=== PATIENT | male | born 1955 | race Caucasian/White ===

== ENCOUNTER 2019-11-08 12:16 | Outpatient (CLI) | payer OTHER, SELFPAY ==
--- NOTE | ~2019-11-08 | XR_ITS ---
EXAMINATION: XR knee LT min 4V DATE: 11/08/2019 12:52 INDICATION: Diffuse left knee pain post fall 3 weeks prior TECHNIQUE: Weight bearing anteroposterior and [place], sunrise, and flexed lateral views of the lef t knee were obtained COMPARISON: None. FINDINGS: Alignment is normal. No fracture. Subtle chondrocalcinosis at the medial and lateral compartments. T here is mild joint space narrowing in the lateral compartment extending position and in the medial co mpartment with the knee in flexion. Severe joint space narrowing at the lateral aspect of the patello femoral compartment. Moderate size marginal osteophytes at the patellofemoral compartment and tiny ma rginal osteophytes along the intercondylar eminence. There are couple loose osteochondral bodies lexus g the cephalad margin of the patella with no significant surrounding left knee joint effusion. There are at least 4 loose osteochondral bodies likely within an ovoid density likely representing a modera te-sized Larsen's cyst at the posteromedial aspect of the knee. Moderate-sized enthesophytes at the p atellar insertion of the distal quadriceps tendon. IMPRESSION: 1. Chondrocalcinosis and tricompartmental osteoarthritis at the left knee, severe at the patellofemor al compartment and mild in the medial and lateral compartments. 2. Multiple loose osteochondral bodies within a Larsen cyst at the posteromedial aspect of the knee. Reviewed, dictated and finalized at location A. T OFFICE ADMINISTRATOR IMPRESSION: 1. Chondrocalcinosis and tricompartmental osteoarthritis at the left knee, tamica re at the patellofemoral compartment and mild in the medial and lateral compart ments. 2. Multiple loose osteochondral bodies within a Larsen cyst at the posteromedial aspect of the knee.
== END 2019-11-08 12:17 | disposition home or self-care (01) ==
LOC: ANHIMG 12:26
PROVIDERS: PCP Family Medicine; Visit Provider Family Medicine
DX: G89.29 Other chronic pain (principal); M17.12 Unilateral primary osteoarthritis, left knee; M23.42 Loose body in knee, left knee
CPT/HCPCS: 73564

== ENCOUNTER 2019-11-22 14:29 | Outpatient (CLI) | payer OTHER, SELFPAY ==
--- NOTE | ~2019-11-22 | XR_ITS ---
XR abdomen/kub 1V DATE: 11/22/2019 14:54 INDICATION: Right-sided kidney stone TECHNIQUE: AP projection, 2 views COMPARISON: 11/22/2019 CT abdomen pelvis noncontrast examination FINDINGS: A mid and lower calcified calculus is confirmed in each kidney. A small probable faint calc ified calculus at the upper pole left kidney is suggested as well. These correspond to bilateral nono bstructing renal calculi documented on 11/21/[address] abdomen pelvis examination. Surgical clips overlie the right lower quadrant. No evidence of bowel obstruction. The psoas shadows are intact. No visceromegaly is evident. IMPRESSION: Stable nonobstructive bilateral nephrolithiasis since 11/22/2019 Reviewed, dictated and finalized at Location A. Reviewed, dictated and finalized at location A.
--- NOTE | ~2019-11-22 | CT_ITS ---
EXAMINATION: CT abdomen pelvis wo con DATE: 11/22/2019 14:51 INDICATION: Right kidney stones, frequent urinary tract infections TECHNIQUE: Computed tomography (CT) of the abdomen and pelvis was performed without intravenous contr ast. The dose-length product (DLP) was 1022.53 mGy-cm. Automated exposure control and iterative recon struction technique were employed. COMPARISON: 09/12/2019 FINDINGS: The lung bases are clear. The heart size is normal. Punctate calcifications in an otherwise normal spleen likely represent healed granulomatous disease. The liver, pancreas, gallbladder, and a drenal glands are normal. There is a 9 mm nonobstructing stone of the right kidney. Nonobstructing st ones of the left kidney measure 2 mm and 7 mm. No stones are present in the ureters or bladder. There is no hydronephrosis or hydroureter. There are surgical clips in the right abdomen. No pathologicall y enlarged abdominal or pelvic lymph nodes are identified. There is no free intraperitoneal gas or ev idence of bowel obstruction. There is calcified atherosclerosis of the aorta and many of the other ar teries. Colonic diverticulosis is present without evidence of diverticulitis. There is severe lower t horacic and lumbar spondylosis. IMPRESSION: 1. Nonobstructing bilateral nephrolithiasis. No hydronephrosis or hydroureter. Reviewed, dictated and finalized at location A.
== END 2019-11-22 14:30 | disposition home or self-care (01) ==
PROVIDERS: PCP Family Medicine; Visit Provider Urology
DX: N20.0 Calculus of kidney (principal)
CPT/HCPCS: 74018; 74176

== ENCOUNTER 2019-11-29 11:49 | Outpatient (CLI) | payer OTHER, SELFPAY ==
--- NOTE | 2019-11-29 12:13 | ECG_ITS ---
Measurements Intervals [place] Rate: 73 P: 31 NC: 152 QRS: 49 QRSD: 92 T: 1 QT: 353 QTc: 390 Interpretive Statements SINUS RHYTHM INFERIOR INFARCT, AGE INDETERMINATE ABNORMAL ECG Electronically Signed On 11-29-2019 13:04:26 CDT by Gama Carranza D.O.
[2019-11-29 12:53] LABS: Blood Urea Nitrogen 13 mg/dL (9-20); Calcium 9.9 mg/dL (8.4-10.2); Carbon Dioxide 30 mmol/L (22-30); Chloride 100 mmol/L (98-107); Estimated Glomerular Filt Rate > 60; Glucose 128 mg/dL (75-110); Potassium 4.3 mmol/L (3.4-5.0); Sodium 139 mmol/L (137-145)
[2019-11-29 12:55] LABS: Prothrombin Time 12.5 Seconds (11.1-14.7)
[2019-11-29 12:56] LABS: Partial Thromboplastin Time 37.6 SECONDS (22.3-36.8)
== END 2019-11-29 11:50 | disposition home or self-care (01) ==
PROVIDERS: PCP Family Medicine; Visit Provider Urology
DX: N20.0 Calculus of kidney (principal); I10 Essential (primary) hypertension; E11.9 Type 2 diabetes mellitus without complications
CPT/HCPCS: 36415; 80048; 85610; 85730; 87086; 93005

== ENCOUNTER 2019-12-03 00:32 | Day surgery (SDC) | payer OTHER, SELFPAY ==
[2019-11-25 11:35] VITALS: BMI 40.0
--- NOTE | ~2019-12-03 | XR_ITS ---
EXAMINATION: XR abdomen/kub 1V DATE: 12/03/2019 07:00 INDICATION: Right nephrolithiasis from previous lithotripsy evaluation TECHNIQUE: A supine view of the abdomen on 2 radiographs was obtained. COMPARISON: 11/22/2019 FINDINGS: Unchanged 7 mm stone projecting over the lower pole of the right kidney and 4 mm stone projecting ove r the mid left kidney. 2 mm stone at the upper pole of the left kidney also appears unchanged althoug h specificities decreased by superimposed stool in the transverse colon. No stones seen along the cou rse of the ureters. Surgical clips in the right lower quadrant. Indeterminate opacity likely external to the patient with no correlate on the prior images projects over the left base of the bladder. A c ouple heterotopic ossicles along the left greater trochanter. No dilated bowel to suggest obstruction . Lung bases are clear. IMPRESSION: 1. Unchanged bilateral nephrolithiasis. Reviewed, dictated and finalized at location A.
[2019-12-03] MEDS: LACTATED RINGERS 1,000 ML 30 ML IV CONT (08:04)
[2019-12-03 08:16] VITALS: BP 122/74; PULSE 84; RESP 18; TEMP 36.6; O2SAT 96
--- NOTE | 2019-12-03 08:24 | WPDANESEPPF ---
Anes - Initial Pre Proc Eval Procedure: Operation Date: 12/03/19 08:30 Proposed Procedures p Right Renal Extracorporeal Shock Wave Lithotripsy - Jeb Samuel MD Date/Time: 12/03/19 08:24 Surgeon: Jeb Samuel MD Pre Op Diagnosis: Right Renal Stone Patient Data Age: 64 Gender: M Height: 6 ft Weight: 134.2 kg Last Vital Signs Temp 36.6 C 12/03/19 08:16 Pulse 84 12/03/19 08:16 Resp 18 12/03/19 08:16 BP 122/74 12/03/19 08:16 Pulse Ox 96 12/03/19 08:16 Allergies Allergy/AdvReac Type Severity Reaction Status Date / Time naproxen Allergy Severe hives and Verified 11/25/19 11:40 itching NSAIDS (Non-Steroidal Allergy Severe HIVES AND Verified 11/25/19 11:40 Anti-Inflamma ITCHING aspirin Allergy Unknown Hives Verified 11/25/19 11:40 hydrocodone Allergy Unknown Elevated Verified 11/25/19 11:40 Heart Rate BILL Inhibitors AdvReac Mild Cough Verified 11/25/19 11:40 Home Medications Medication Instructions Recorded Confirmed Type atorvastatin 20 mg PO HS 09/13/19 11/25/19 History cyclobenzaprine 5 mg PO TID PRN 09/13/19 11/25/19 History mometasone 1 spray INTRANASAL BID PRN 09/13/19 11/25/19 History diclofenac sodium 75 mg 50 mg PO BID tablet 09/28/19 11/25/19 History tablet,delayed release metformin 500 mg tablet 1,000 mg PO BID #360 tablet 10/29/19 11/25/19 Rx Curamin 2 cap PO DAILY 11/25/19 History losartan 25 mg tablet 25 mg PO DAILY #90 tablet 12/02/19 Rx Patient hx anesthesia problems: none Family hx anesthesia problems: none PMFSH Past Medical History Medical History Chronic neck pain 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 Diabetes mellitus Fusion of joint Hyperlipidemia Hypertension Knee pain, chronic Left anterior knee pain Surgical History Surgical History History of appendectomy History of back surgery History of knee surgery History of vasectomy Hx of arthroscopic knee surgery Family History Family History Father Myocardial infarction Mother Breast cancer Social History Social History Years smoked: 20 Smoking status: Former smoker Tobacco type: cigarettes Second hand tobacco smoke exposure: No Alcohol intake: never Substance use: never Substance use type: does not use Gender identity (if verbalized by the patient): Male Spiritual care concerns: No Agree to blood products: Yes Anes - Eval Final PreProcedure Day of Procedure 12/03/19 08:24 Patient weight: morbidly obese Heart: regular rate and rhythm Lungs: decreased breath sounds Airway: Mallampati scale class II Neurological: alert and oriented Last oral intake: >/= 8 hours ASA classification: III Emergent: no Anesthetic plan: proceed Anesthesia type and monitoring: general LMA and standard monitoring Informed Consent: The patient's anesthetic plan and its attendant risks and benefits were discussed with the patient/family/POA. Questions were solicited and answers provided to the satisfaction of the patient/family/POA.
--- NOTE | 2019-12-03 08:27 | WPDHPUPDATE1 ---
History and Physical Update Update Date/Time: 12/03/19 08:27 History and Physical has been reviewed, including an updated exam of the patient. There are NO changes in the patient's condition. Risks, benefits, and alternatives have been discussed and questions answered. Patient agrees to proceed with procedure.
[2019-12-03 08:29] LABS: Glucose Point of Care 129 (65-105)
[2019-12-03] MEDS: ceFAZolin 3 GM/D5W 100 ML 100 ML IVPB (08:44)
[2019-12-03 09:32] VITALS: BP 140/75; PULSE 74; RESP 10; TEMP 36.2; O2SAT 100
[2019-12-03 09:45] VITALS: BP 145/93; PULSE 71; RESP 14; O2SAT 100
[2019-12-03 09:49] LABS: Glucose Point of Care 124 (65-105)
[2019-12-03 10:00] VITALS: BP 154/94; PULSE 73; RESP 14; O2SAT 100
--- NOTE | 2019-12-03 10:09 | PM.PROC ---
Procedure Note - Detailed Date of procedure: 12/03/19 Pre-op diagnosis: Right Renal Stone Post-op diagnosis: same Procedure performed: Right ESWL Description of procedure: The patient was brought to the operative suite where he was placed in the supine position on the Dornier lithotripsy table. The focal point of the lithotripter was placed at a 7-8mm right renal calculus. A total of 2500 shocks were delivered at a power setting of 7. There appeared to be good fragmentation of the stone. The patient tolerated the procedure well and was taken to the recovery room in good condition. Anesthesia: GLMA Surgeon: Jeb Samuel MD Estimated blood loss (mL): 0 Drains: No Packing: No Pathology: none sent Complications: No immediate complications Condition: stable Disposition: PACU
[2019-12-03 10:11] VITALS: BP 123/69; PULSE 72; RESP 18
--- NOTE | 2019-12-03 10:36 | SUR.OPER ---
EBL:0CC
[2019-12-03 10:40] VITALS: BP 109/79; PULSE 69; RESP 16
== END 2019-12-03 10:57 | disposition home or self-care (01) ==
PROVIDERS: PCP Family Medicine; Visit Provider Urology
PROC: (CPT 50590; principal; 2019-12-03 08:30)
DX: N20.0 Calculus of kidney (principal); E11.9 Type 2 diabetes mellitus without complications; E78.5 Hyperlipidemia, unspecified; I10 Essential (primary) hypertension; Z79.84 Long term (current) use of oral hypoglycemic drugs; Z87.891 Personal history of nicotine dependence; E66.01 Morbid (severe) obesity due to excess calories; Z68.41 Body mass index [BMI] 40.0-44.9, adult
CPT/HCPCS: 50590; 74018; J0690; J1100; J2704; J3010; J7120

== ENCOUNTER 2019-12-21 09:47 | Outpatient (CLI) | payer OTHER, SELFPAY ==
--- NOTE | ~2019-12-21 | XR_ITS ---
XR abdomen/kub 1V 12/21/2019 10:01 Indication: Renal stone Procedure: KUB Comparison: 12/03/2019 Findings: There are stable appearing bilateral renal stones. Surgical clips right midabdomen. No defi nite calcifications are identified in the expected course of the ureters. Bowel pattern is nonobstruc tive. Impression: 1: Stable bilateral nephrolithiasis. Reviewed, dictated and finalized at location A. Impression: 1: Stable bilateral nephrolithiasis.
== END 2019-12-21 09:48 | disposition home or self-care (01) ==
PROVIDERS: PCP Family Medicine; Visit Provider Nurse Practitioner Adult Health
DX: N20.0 Calculus of kidney (principal)
CPT/HCPCS: 74018

== ENCOUNTER 2020-06-14 10:30 | Outpatient (CLI) | payer OTHER, SELFPAY ==
--- NOTE | ~2020-06-14 | XR_ITS ---
XR abdomen/kub 1V DATE: 06/14/2020 10:56 INDICATION: Right kidney stone. Lithotripsy 6 months ago. TECHNIQUE: AP projection, 2 views COMPARISON: 12/21/2019 KUB FINDINGS: Approximately 4 x 7 mm calcification overlies the mid to lower right kidney. There is an a pproximately 3 mm calcification overlying the mid left kidney. Surgical clips overlie the right lower quadrant of the abdomen. No evidence of bowel obstruction.. IMPRESSION: Bilateral nephrolithiasis, stable in appearance since 12/21/2019 Reviewed, dictated and finalized at Location A. Reviewed, dictated and finalized at location A.
== END 2020-06-14 10:31 | disposition home or self-care (01) ==
PROVIDERS: PCP Family Medicine; Visit Provider Urology
DX: N20.0 Calculus of kidney (principal)
CPT/HCPCS: 74018

== ENCOUNTER 2020-07-21 13:53 | Outpatient (CLI) | payer OTHER, BC, SELFPAY ==
--- NOTE | ~2020-07-21 | CT_ITS ---
EXAMINATION: CT thoracic lumbar wo con DATE: 07/21/2020 14:24 INDICATION: Thoracic back pain. Radiculopathy. TECHNIQUE: Computed tomography (CT) of the thoracic and lumbar spine was performed without intravenou s contrast. Automated exposure control and iterative reconstruction technique were employed. The dose -length product was 2247.40 mGy-cm. COMPARISON: CT thoracic and lumbar spine 09/12/2019 FINDINGS: CT THORACIC SPINE: Calcified pulmonary nodules and calcified hilar and mediastinal lymph nodes are co nsistent with old granulomatous disease. Calcifications in the spleen are consistent with old granulo matous disease. There is 4 degrees dextrocurvature of thoracic spine. There is mild chronic anterior wedging of T11 and T12 vertebral bodies. There is mildly decreased disc height at T5-T6 and C6-C7 and moderately decreased disc height from T8-T9 through T11-T12. At T8-T9 and T10-T11, the discs are bul ging with mild central canal stenosis. There is multilevel facet joint osteoarthritis, mild at most l evels. At T1-T2, there is severe bilateral facet joint osteoarthritis and mild bilateral neural susie inal stenosis. At T2-T3, there is mild left neural foraminal stenosis. There are changes of anterior fusion procedure in cervical spine. CT LUMBAR SPINE: Bone alignment is normal. Vertebral body heights are normal. There is moderately dec reased disc height at L3-L4 and severely decreased disc height at L4-L5 and L5-S1. The following disc levels are specifically discussed: L1-L2: The disc does not extend beyond the endplate margin. There is moderate bilateral facet joint o steoarthritis. There is no neural foraminal stenosis. There is no central canal stenosis. L2-L3: The disc does not extend beyond the endplate margin. There is moderate bilateral facet joint o steoarthritis. There is no neural foraminal stenosis. There is no central canal stenosis. L3-L4: The disc is bulging. There is mild bilateral facet joint osteoarthritis. There is mild bilater al neural foraminal stenosis. There is mild central canal stenosis. L4-L5: The disc is bulging. There is mild bilateral facet joint osteoarthritis. There is moderate suresh ateral neural foraminal stenosis. There is mild central canal stenosis. L5-S1: The disc is bulging. There is severe bilateral facet joint osteoarthritis. There is severe suresh ateral neural foraminal stenosis. There is mild central canal stenosis. IMPRESSION: 1. Mild thoracic spondylosis and severe lumbar spondylosis, stable from 09/12/2019. Reviewed, dictated and finalized at location A. ROOM CLERK IMPRESSION: 1. Mild thoracic spondylosis and severe lumbar spondylosis, stable from 0.
== END 2020-07-21 13:54 | disposition home or self-care (01) ==
PROVIDERS: PCP Family Medicine; Visit Provider Nurse Practitioner Family
DX: M48.05 Spinal stenosis, thoracolumbar region (principal); M47.25 Other spondylosis with radiculopathy, thoracolumbar region
CPT/HCPCS: 72128; 72131

== ENCOUNTER 2020-09-15 10:42 | Outpatient (CLI) | payer BC, SELFPAY ==
--- NOTE | ~2020-09-15 | CT_ITS ---
EXAMINATION: CT cervical spine w con EXAM DATE: 09/15/2020 11:34 INDICATION: Cervical radiculopathy. Fusion. TECHNIQUE: Spiral CT of the cervical spine was performed following injection of 75 mL Omnipaque 350 s olution intravenously. Axial images were reviewed. Coronal and sagittal reformatted images were als o reviewed. The dose-length product (DLP) for this examination was 612.75 mGy-cm. The exposure was t ailored according to patient size (auto mA exposure control), and iterative reconstruction (ASIR) was used as additional dose reduction technique. Comparison is made to prior examination from 07/21/2020 . FINDINGS: There are no areas of abnormal enhancement on the post contrast images. The odontoid proces s is intact. The lateral masses of C1 line up with C2. Prevertebral soft tissue and pre-dens space a re within normal limits. There is mild to moderate disc disease at C3-4. Anterior and interbody fusio n C4-7. There are no osteoblastic or osteolytic lesions identified. Level by level evaluation: C2-C3: Disc does not extend beyond the endplate margin. Uncovertebral joint arthropathy: Mild left. Facet joint arthropathy: Severe left, mild to moderate right. Neural foraminal stenosis: Moderate to severe left. Central canal stenosis: No stenosis. C3-C4: There is a mild diffuse disc bulge. Uncovertebral joint arthropathy: Mild to moderate right, mild left. Facet joint arthropathy: Severe right, mild left. Neural foraminal stenosis: Severe right, mild to moderate left. Central canal stenosis: Mild. C4-C5: This level is fused. Uncovertebral joint arthropathy: Mild to moderate bilateral. Facet joint arthropathy: Moderate but fused left, mild right. Neural foraminal stenosis: Moderate to severe left. Central canal stenosis: No stenosis. C5-C6: This level is fused. Bulky posterior ossification Uncovertebral joint arthropathy: Mild to moderate bilateral. Facet joint arthropathy: Mild to moderate bilateral. Neural foraminal stenosis: Moderate left, mild to moderate right. Central canal stenosis: Mild. C6-C7: This level is fused. Ossification posterior longitudinal ligament. Uncovertebral joint arthropathy: Moderate to severe bilateral. Facet joint arthropathy: Mild bilateral. Neural foraminal stenosis: Severe right, moderate to severe left. Central canal stenosis: Mild. C7-T1: There is a mild diffuse disc bulge. Uncovertebral joint arthropathy: Mild. Facet joint arthropathy: Mild to moderate. Neural foraminal stenosis: Mild bilateral. Central canal stenosis: No stenosis. IMPRESSION: 1. Intact fusion C4-C7. 2. Significant multilevel neural foraminal stenosis from arthropathy. Reviewed, dictated and finalized at location A. ATION NURSE
[2020-09-15 11:20] LABS: Estimated Glomerular Filt Rate > 60
== END 2020-09-15 10:43 | disposition home or self-care (01) ==
PROVIDERS: Visit Provider Nurse Practitioner Family
DX: M54.12 Radiculopathy, cervical region (principal); Z98.1 Arthrodesis status
CPT/HCPCS: 72126; Q9967

== ENCOUNTER 2021-07-26 09:36 | Outpatient (CLI) | payer BC, SELFPAY ==
--- NOTE | ~2021-07-26 | XR_ITS ---
XR abdomen/kub 1V DATE: 07/26/2021 09:52 INDICATION: Right kidney stone TECHNIQUE: AP projection, 2 views COMPARISON: 07/04/2020 KUB FINDINGS: Surgical clips overlie the right lower quadrant. Approximately 4.5 x 8 mm calcified calculus overlying the right mid kidney. Approximately 3.5 x 6.5 mm calcified calculus overlying the lower pole of the left kidney. No evidence of bowel obstruction. The psoas shadows are intact. No visceromegaly is evident. Included skeletal structures are unremarkable. IMPRESSION: Bilateral nephrolithiasis Reviewed, dictated and finalized at Location A. Reviewed, dictated and finalized at location A. ER MEDICAL SPECIALIST IMPRESSION: Bilateral nephrolithiasis
== END 2021-07-26 09:37 | disposition home or self-care (01) ==
LOC: ANHIMG 09:40
PROVIDERS: PCP Internal Medicine; Visit Provider Urology
DX: N20.0 Calculus of kidney (principal)
CPT/HCPCS: 74018

== ENCOUNTER 2022-07-31 10:54 | Outpatient (CLI) | payer MEDICARE, SELFPAY ==
--- NOTE | ~2022-07-31 | XR_ITS ---
EXAM: XR abdomen/kub 1V DATE: 07/31/2022 11:13 HISTORY: KID STONE OF RT SIDE; hx of stones . COMPARISON: 07/26/2021. FINDINGS: Clear lung bases. Surgical clips over the right lower quadrant. Normal bowel gas pattern. Hepatomegaly. Bilateral calcifications over the mid right and lower left renal poles. Degenerative ch angeles in the lumbar spine and hips. IMPRESSION: Stable bilateral nephrolithiasis. Reviewed, dictated and finalized at location K. CTIONS THERAPIST
== END 2022-07-31 10:55 | disposition home or self-care (01) ==
PROVIDERS: PCP Internal Medicine; Visit Provider Urology
DX: N20.0 Calculus of kidney (principal)
CPT/HCPCS: 74018

== ENCOUNTER → 2022-09-30 08:38 | Outpatient (CLI) | payer MEDICARE, SELFPAY ==
--- NOTE | ~2022-09-30 | MR_ITS ---
MRI of the cervical spine Clinical History: Radiculopathy Technique: Axial T2-weighted and gradient images, and sagittal T1-weighted, T2-weighted, and STIR rick ges were acquired. COMPARISON: 04/01/2015 Findings: No acute fracture or subluxation seen. There is straightening of the normal cervical lordos is. Patient is status post interval anterior fusion extending from C4 to C7, there is an anterior dara te and screws, and disc fusion devices at the C4-C5, C5-C6, and C6-C7 disc spaces. Remaining disc spa maggie are relatively well-preserved. At C2-C3, there is no disc bulge or herniation. There is left facet arthropathy with mild left neural foraminal narrowing. Right neural foramen preserved. No canal stenosis or cord compression. At C3-C4, there is right facet joint hypertrophy, with right neural foraminal narrowing. Left neural foramen is relatively preserved. No significant disc bulge or herniation. No canal stenosis or cord c ompression. At C4-C5, there is left facet joint hypertrophy with probable left neural foraminal narrowing. Right neural foramen preserved. No definite disc bulge or herniation. No canal stenosis or cord compression . There is a posterior osteophyte at the left paracentral region along the posterior margin of the C5 v ertebral body, resulting in mild flattening/compression of the ventral cord at the C5 level. At C5-C6, there is probable preservation of the neural foramina. No kosta canal stenosis. There is mi nimal ventral flattening of the left side of the cord related to the inferior margin of the aforement ioned osteophyte. At C6-C7, there is no significant disc bulge or herniation. There is no spinal canal stenosis or cord compression. There is probable bilateral neural foraminal narrowing. No abnormal signal seen in the spinal cord. Paravertebral soft tissues otherwise are unremarkable. Impression: Status post interval anterior fusion from C4 to C7. Posterior osteophyte the left paracentral region along the posterior margin of the C5 vertebral body, resulting in mild flattening/compression of the ventral cord at the C5 to C5-C6 regions. Additional mild degenerative changes with neural foraminal narrowing at several cervical levels, as d etailed above. Reviewed, dictated and finalized at location M. Impression: Status post interval anterior fusion from C4 to C7. Posterior osteophyte the left paracentral region along the posterior margin of the C5 vertebral body, resulting in mild flattening/compression of the ventral cord at the C5 to C5-C6 regions. Additional mild degenerative changes with neural foraminal narrowing at several cervical levels, as detailed above.
== END ==
PROVIDERS: PCP Internal Medicine; Visit Provider Internal Medicine
DX: M54.12 Radiculopathy, cervical region (principal); Z98.1 Arthrodesis status; M50.30 Other cervical disc degeneration, unspecified cervical region
CPT/HCPCS: 72141

== ENCOUNTER 2022-10-14 07:09 | Emergency (ER) | payer MEDICARE, SELFPAY ==
[2022-10-14 07:15] VITALS: BP 174/99; PULSE 91; RESP 18; TEMP 36.6; O2SAT 99
[2022-10-14] MEDS: methylPREDNISolone SOD SUCC 125 MG VIAL IV PUSH (08:32)
[2022-10-14] MEDS: HYDROmorphone HCL INJ (*CRX) 1 MG/ML SYR IV PUSH (08:33)
[2022-10-14] MEDS: ONDANSETRON INJ 4 MG/2 ML VIAL IV PUSH (08:34)
--- NOTE | 2022-10-14 09:23 | ED.BACK ---
HPI - Back Pain/Injury General Chief Complaint: Back Pain/Injury Stated Complaint: upper back/neck pain Time Seen by Provider: 10/14/22 07:17 Source: patient, RN notes reviewed and old records reviewed Mode of arrival: ambulatory Limitations: no limitations History of Present Illness HPI Narrative: This is a 67 year old male with history of cervical spine fusion who presents for evaluation of neck pain. Patient states he has history of neck issues. He has been having worsening pain for 3 weeks. His pain is constant and radiating down his left arm. He also reports numbness to 4th/5th fingers on left hand as well. He denies any trauma. Patient has been evaluated by his primary care provider, and he has been referred to pain management. He is also receiving physical therapy, and he had an MRI done almost 2 weeks ago. PAtient was taking percocet for his pain but it ran out on . He states that his pain was tolerable until he ran out his pain medication. He states he has been unable to sleep due to his pain. He is scheduled for steroid injection this afternoon. Related Data Home Medications Medication Instructions Recorded Confirmed atorvastatin 20 mg tablet 20 mg PO HS 09/13/19 11/25/19 cyclobenzaprine 5 mg tablet 5 mg PO TID PRN Muscle Spasm 09/13/19 11/25/19 diclofenac sodium 75 mg 50 mg PO BID 09/28/19 11/25/19 tablet,delayed release Curamin 2 cap PO DAILY 11/25/19 Allergies Allergy/AdvReac Type Severity Reaction Status Date / Time naproxen Allergy Severe hives and Verified 11/25/19 11:40 itching NSAIDS (Non-Steroidal Allergy Severe HIVES AND Verified 11/25/19 11:40 Anti-Inflamma ITCHING aspirin Allergy Unknown Hives Verified 11/25/19 11:40 hydrocodone Allergy Unknown Elevated Verified 11/25/19 11:40 Heart Rate BLIL Inhibitors AdvReac Mild Cough Verified 11/25/19 11:40 Review of Systems Constitutional: Constitutional: Denies weakness Comments: denies fever Cardiovascular: Cardiovascular: Denies syncope, Denies rapid heart rate, Denies irregular heart rhythm, Denies leg edema and Denies dyspnea Respiratory: Respiratory: Denies chest congestion, Denies hemoptysis, Denies excessive phlegm production and Denies dyspnea Gastrointestinal: Gastrointestinal: Denies abdominal pain, Denies hematochezia, Denies diarrhea and Denies vomiting Genitourinary: Genitourinary: Denies hematuria, Denies dysuria, Denies penile discharge and Denies testicular pain Musculoskeletal: Musculoskeletal: Denies joint swelling, Denies loss of height and Denies muscle weakness Neurologic: Denies syncope, Denies focal weakness, Reports numbness and Denies weakness PMFSH Past Medical History Medical History (Updated 10/14/22 @ 11:24 by Loretta Patiño MD) Chronic neck pain 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 Diabetes mellitus Fusion of joint Hyperlipidemia Hypertension Knee pain, chronic Left anterior knee pain Surgical History Surgical History History of appendectomy History of back surgery History of knee surgery History of vasectomy Hx of arthroscopic knee surgery Family History Family History Father Myocardial infarction Mother Breast cancer Social History Social History Years smoked: 20 Smoking status: Former smoker Tobacco type: cigarettes Second hand tobacco smoke exposure: No Alcohol intake: never Substance use: never Substance use type: does not use Living arrangements: with family Occupation/Education: occupation Gender identity (if verbalized by the patient): Male Spiritual care concerns: No Agree to blood products: Yes Exam Const: General: alert Nutritional Appearance: well nourished Orientation/consciousness: patient oriented x3 Other: patient appears to be in pain HENMT: Head: normal t
[2022-10-14] MEDS: KETOROLAC 30 MG/ML VIAL (*BKC) IV PUSH (09:41)
== END 2022-10-14 11:40 | disposition home or self-care (01) ==
PROVIDERS: Emergency Provider General Practice; PCP Internal Medicine
DX: M54.12 Radiculopathy, cervical region (principal); Z98.1 Arthrodesis status; E11.9 Type 2 diabetes mellitus without complications; E78.5 Hyperlipidemia, unspecified; I10 Essential (primary) hypertension; Z87.891 Personal history of nicotine dependence; Z79.84 Long term (current) use of oral hypoglycemic drugs
CPT/HCPCS: 96374; 96375; 99284; J0131; J1170; J1885; J2405; J2930

== ENCOUNTER → 2022-11-18 12:46 | Outpatient (CLI) | payer MEDICARE, SELFPAY ==
--- NOTE | ~2022-11-18 | CT_ITS ---
Noncontrast CT scan of the cervical spine Technique: Multiple contiguous axial [address] images of the cervical spine were obtained and rec onstructed in 2D sagittal and coronal planes on the acquisition scanner. Dose reduction technique was used on this scan by utilizing automated exposure control, adjustment of the mA and/or kV according to patient size. Clinical History: Cervical spondylosis COMPARISON: 09/15/2020 Findings: No fractures or dislocations. Osseous alignment is unchanged. Stable anterior fusion from C4 through C7, associated fusion across the relevant disc spaces. There is minimal degenerative disc change at C3-C4 and C7-T1. There is left neural foraminal narrowing at C2-C3, with advanced left face t arthropathy at this level. There is right neural foraminal narrowing at C3-C4, with advanced facet arthropathy and right-sided this level. There is left facet arthropathy at C4-C5, with left neural fo raminal narrowing. Probable mild canal stenosis due to bony encroachment on the anterior canal at the C5 level. There is bilateral neural foraminal narrowing at C5-C6 and C6-C7. No prevertebral soft tis carlton swelling. Impression: No fracture or subluxation of the cervical spine. Anterior fusion, unchanged, from C4 to C7. Degenerative spondylosis, as detailed above, essentially unchanged from prior exam. Probable mild canal stenosis at C5 level related to posterior osteophyte. Reviewed, dictated and finalized at location . Impression: No fracture or subluxation of the cervical spine. Anterior fusion, unchanged, from C4 to C7. Degenerative spondylosis, as detailed above, essentially unchanged from prior e xam. Probable mild canal stenosis at C5 level related to posterior osteophyte.
--- NOTE | ~2022-11-18 | XR_ITS ---
EXAM: XR cervical spine 4-5V DATE: 11/18/2022 12:59 HISTORY: Cervical spondylosis no injury tingling left arm . COMPARISON: CT C-spine 11/18/2022, x-ray C-spine 06/14/2019. FINDINGS: Uncomplicated anterior fusion spanning C4-C7. Interbody plugs in good position. Craniocerv ical association and atlantoaxial joint are aligned. No prevertebral soft tissue swelling. Stable gra de 1 anterolisthesis at C2-3. A 2 mm anterolisthesis emerges in flexion at C3-4. Vertebral body heigh ts are maintained. Mild disc space narrowing at C3-4. Upper and lower cervical facet arthropathy. IMPRESSION: Grade 1 dynamic listhesis at C3-4. Stable grade 1 anterolisthesis at C2-3. No radiographi c evidence of hardware-related complication. Multilevel facet arthropathy. Reviewed, dictated and finalized at location K. IMPRESSION: Grade 1 dynamic listhesis at C3-4. Stable grade 1 anterolisthesis a t C2-3. No radiographic evidence of hardware-related complication. Multilevel f acet arthropathy.
== END ==
PROVIDERS: PCP Internal Medicine; Visit Provider Neurological Surgery
DX: M47.812 Spondylosis without myelopathy or radiculopathy, cervical region (principal); Z98.1 Arthrodesis status
CPT/HCPCS: 72050; 72125

== ENCOUNTER 2023-01-01 08:00 | Emergency (ER) | payer MEDICARE, SELFPAY ==
[2023-01-01] VITALS (20 sets, daily range): BP systolic 134–168; BP diastolic 77–99; PULSE 94–104; RESP 12–22; TEMP 36.7; O2SAT 96–100
--- NOTE | ~2023-01-01 | CT_ITS ---
EXAMINATION: CT cervical spine wo con DATE: 01/01/2023 09:52 INDICATION: Neck pain. TECHNIQUE: Computed tomography (CT) of the cervical spine was performed without intravenous contrast. Automated exposure control and iterative reconstruction technique were employed. The dose-length pro duct was 614.45 mGy-cm. COMPARISON: CT cervical spine 11/18/2022 FINDINGS: There is hypolordosis of cervical spine. There are changes of anterior fusion procedure fro m C4 to C7 with healed interbody bone graft and anterior plate and screws. There are changes of poste rior fusion procedure from C5 to T2 with lateral mass screws in C5 and C6 and pedicle screws in T1 an d T2. There is mildly decreased disc height at T1-T2. Vertebral body heights are normal. There are la minectomies from C5 to C7. There is a fluid collection in the surgical bed measuring 8.2 x 3.9 x 3.3 cm. The following disc levels are specifically discussed: C2-C3: There is mild right and severe left uncovertebral joint osteoarthritis. There is severe bilate ral facet joint osteoarthritis. There is moderate left neural foraminal stenosis. There is no central canal stenosis. C3-C4: There is severe right and mild left uncovertebral joint osteoarthritis. There is severe bilate ral facet joint osteoarthritis. There are new erosions at the right facet joint. There is moderate an d mild left neural foraminal stenosis. There is mild central canal stenosis. C4-C5: There is mild left uncovertebral joint hypertrophy. There is mild right facet joint osteoarthr itis. There is ankylosis of left facet joint with severe hypertrophy. There is moderate left neural f oraminal stenosis. There is no central canal stenosis. C5-C6: There is mild bilateral uncovertebral joint hypertrophy. There is mild bilateral facet joint h ypertrophy. There is mild bilateral neural foraminal stenosis. There is mild central canal stenosis w ith posterior decompression. C6-C7: There is moderate bilateral uncovertebral joint hypertrophy. There is mild bilateral facet abdiaziz nt hypertrophy. There is moderate right and mild left neural foraminal stenosis. There is mild centra l canal stenosis with posterior decompression. C7-T1: There is no uncovertebral joint osteoarthritis. There is moderate bilateral facet joint osteoa rthritis. There is no neural foraminal stenosis. There is no central canal stenosis. IMPRESSION: 1. New erosions at the right C3-C4 facet joint suspicious for septic arthritis. 2. Postsurgical fluid collection in the area of the laminectomies from C5 to C7. 3. Anterior fusion from C4 to C7. 4. Posterior fusion procedure from C5 to T1. 5. Moderate cervical spondylosis. Reviewed, dictated and finalized at location A. IMPRESSION: 1. New erosions at the right C3-C4 facet joint suspicious for septic arthritis. 2. Postsurgical fluid collection in the area of the laminectomies from C5 to C7 . 3. Anterior fusion from C4 to C7. 4. Posterior fusion procedure from C5 to T1. 5. Moderate cervical spondylosis.
--- NOTE | ~2023-01-01 | XR_ITS ---
EXAMINATION: XR chest 2V DATE: 01/01/2023 09:05 INDICATION: Weakness. Fever and chills. TECHNIQUE: Frontal and lateral views of the chest were obtained. COMPARISON: Chest 2 views 09/12/2019 FINDINGS: There is chronic mild elevation of right hemidiaphragm. Calcified bilateral lung nodules an d calcified hilar lymph nodes are consistent with old granulomatous disease. No pleural effusion or p neumothorax. The heart size is normal. There are changes of anterior fusion procedure in cervical spi ne. There are changes of posterior fusion procedure in cervicothoracic spine. There is mild chronic a nterior wedging of a lower thoracic vertebral body. IMPRESSION: 1. No acute cardiopulmonary disease. Reviewed, dictated and finalized at location A.
--- NOTE | ~2023-01-01 | CT_ITS ---
EXAMINATION: CT cervical spine w con DATE: 01/01/2023 11:27 INDICATION: Cervical spine infection. TECHNIQUE: Computed tomography (CT) of the cervical spine was performed with 100 mL Omnipaque 350 int ravenous contrast. Automated exposure control and iterative reconstruction technique were employed. T he dose-length product was 642.14 mGy-cm. COMPARISON: CT cervical spine at 9:[address] cervical spine 11/18/22 FINDINGS: There is hypolordosis of cervical spine. There are changes of anterior fusion procedure fro m C4 to C7 with healed interbody bone graft and anterior plate and screws. There are changes of poste rior fusion procedure from C5 to T2 with lateral mass screws in C5 and C6 and pedicle screws inT1 and T2. There is mildly decreased disc height at T1-T2. Vertebral body heights are normal. There are summers inectomies from C5 to C7. There is a fluid collection in the surgical bed measuring 8.2 x 3.9 x 3.3 cm with areas of rim enhancement. The following disc levels are specifically discussed: C2-C3: There is mild right and severe left uncovertebral joint osteoarthritis. There is severe bilate ral facet joint osteoarthritis. There is moderate left neural foraminal stenosis. There is no central canal stenosis. C3-C4: There is severe right and mild left uncovertebral joint osteoarthritis. There is severe bilate ral facet joint osteoarthritis. There are new erosions at the right facet joint. There is moderate an d mild left neural foraminal stenosis. There is mild central canal stenosis. C4-C5: There is mild left uncovertebral joint hypertrophy. There is mild right facet joint osteoarthr itis. There is ankylosis of left facet joint with severe hypertrophy. There is moderate left neural f oraminal stenosis. There is no central canal stenosis. C5-C6: There is mild bilateral uncovertebral joint hypertrophy. There is mild bilateral facet joint h ypertrophy. There is mild bilateral neural foraminal stenosis. There is mild central canal stenosis w ith posterior decompression. C6-C7: There is moderate bilateral uncovertebral joint hypertrophy. There is mild bilateral facet abdiaziz nt hypertrophy. There is moderate right and mild left neural foraminal stenosis. There is mild centra l canal stenosis with posterior decompression. C7-T1: There is no uncovertebral joint osteoarthritis. There is moderate bilateral facet joint osteoa rthritis. There is no neural foraminal stenosis. There is no central canal stenosis. IMPRESSION: 1. Erosions at the right C3-C4 facet joint suspicious for septic arthritis, new from 11/18/22. 2. 8.2 x 3.9 x 3.3 cm postsurgical fluid collection in the area of the laminectomies from C5 to C7. 3. Anterior fusion from C4 to C7. 4. Posterior fusion procedure from C5 to T1. 5. Moderate cervical spondylosis. Reviewed, dictated and finalized at location A. IMPRESSION: 1. Erosions at the right C3-C4 facet joint suspicious for septic arthritis, new from 11/18/22. 2. 8.2 x 3.9 x 3.3 cm postsurgical fluid collection in the area of the laminect omies from C5 to C7. 3. Anterior fusion from C4 to C7. 4. Posterior fusion procedure from C5 to T1. 5. Moderate cervical spondylosis.
[2023-01-01] MEDS: MORPHINE SULFATE (*CRX) 4 MG/ML INJ IV PUSH (09:10)
[2023-01-01] MEDS: ONDANSETRON INJ 4 MG/2 ML VIAL IV PUSH (09:16)
[2023-01-01 09:17] LABS: Basophils Absolute Auto 0.1 K/mm3 (0.0-0.1); Eosinophils Absolute Auto 0.3 K/mm3 (0-0.3); Hematocrit 45.3 % (42.0-52.0); Hemoglobin 14.7 g/dL (14.0-18.0); Immature Granulocyte Absolute 0.04 K/mm3 (0.00-0.031); Immature Granulocyte Percent A 0.4 % (0-0.5); Lymphocytes Absolute Auto 1.69 K/mm3 (0.9-3.2); Mean Corpuscular HGB Conc 32.5 g/dl (32-36); Mean Corpuscular Hemoglobin 31.2 pg (26-34); Mean Corpuscular Volume 96.2 fl (80-100); Mean Platelet Volume 10.4 fl (7.4-10.4); Monocytes Absolute Auto 0.7 K/mm3 (0.1-0.6); Monocytes Percent Auto 7.4 % (2.6-8.5); Neutrophils Absolute Auto 6.2 K/mm3 (1.3-6.7); Neutrophils Percent Auto 69.2 % (45.5-73.1); Platelet Count Result 311 k/mm3 (150-375); Red Blood Count 4.71 M/mm3 (4.6-6.20); White Blood Count 8.9 K/mm3 (4.5-10.0)
[2023-01-01 09:28] LABS: Lactic Acid Reflex 2.3 mmol/L (0.7-2.0)
[2023-01-01 09:30] LABS: Alanine Aminotransferase 41 U/L (6-50); Albumin Level 4.9 g/dL (3.5-5.1); Alkaline Phosphatase 65 U/L (38-126); Anion Gap 12 mmol/L (8-16); Aspartate Amino Transferase 39 U/L (17-59); Bilirubin,Total 1.1 mg/dL (0.2-1.3); Blood Urea Nitrogen 16 mg/dL (9-20); CRP 1.3 mg/dL (<1.0); Calcium 10.5 mg/dL (8.4-10.2); Carbon Dioxide 29 mmol/L (22-30); Chloride 97 mmol/L (98-107); Estimated CRCL calculation 80 ml/min; Estimated Glomerular Filt Rate > 60; Glucose 153 mg/dL (65-110); Potassium 4.6 mmol/L (3.4-5.0); Sodium 138 mmol/L (137-145)
[2023-01-01 09:51] LABS: Erythrocyte Sedimentation Rate 21 mm/hr (0-20)
[2023-01-01 09:53] LABS: Influenza A QL RT-PCR Negative (Negative); Influenza B QL RT-PCR Negative (Negative); SARS-CoV-2 RNA PCR Negative (Negative)
[2023-01-01] MEDS: SODIUM CHLORIDE 0.9% IV 1,000 ML 999 ML IV CONT (10:00)
[2023-01-01 10:38] LABS: Appearance Urine Clear (Clear); Bacteria Urine None Seen /hpf; Bilirubin Urine Negative (Negative); Blood Urine Negative (Negative); Color Urine Yellow (Yellow); Glucose Urine UA Negative (Negative); Ketones Urine 1+ mg/dL (Negative); Leukocyte Esterase Ur Negative LEU/UL (Negative); Nitrate Urine Negative (Negative); Non Pathogenic Casts 0-2; Protein Urine Trace mg/dL (Negative); RBC Urine 0-2 /hpf (0-2); Specific Grav Ur 1.024 (1.001-1.035); Squamous Epithelial Cell Urine None seen /hpf (Few); Urobilinogen Urine 0.2 mg/dL (<2.0); WBC Urine 0-5 /hpf
[2023-01-01 10:51] LABS: Add Urine Microscopic? YES
--- NOTE | 2023-01-01 10:56 | ED.GENADULT ---
HPI - General Adult General Chief complaint: Unspecified Stated complaint: infection? Time Seen by Provider: 01/01/23 08:11 History of Present Illness HPI narrative: Patient is a 67-year-old male who presents ER with concerns for infection in his neck. The last 2 days he has been having sweats and chills. No documented fevers. He is also had some increased aching in his neck lateral to his scar on each side. He had follow-up with his neurosurgeon today at noon but opted to come to the ER because he cannot stand the discomfort. No new numbness or tingling in his arms or legs. He reports he has had some tingling since his surgery in his hands but it was felt this was normal. Surgery was 1 month ago. It was performed at [facility] by Dr. Walls. Related Data Home Medications Medication Instructions Recorded Confirmed atorvastatin 20 mg tablet 20 mg PO HS 09/13/19 11/25/19 cyclobenzaprine 5 mg tablet 5 mg PO TID PRN Muscle Spasm 09/13/19 11/25/19 diclofenac sodium 75 mg 50 mg PO BID 09/28/19 11/25/19 tablet,delayed release Curamin 2 cap PO DAILY 11/25/19 Allergies Allergy/AdvReac Type Severity Reaction Status Date / Time naproxen Allergy Severe hives and Verified 01/01/23 08:19 itching NSAIDS (Non-Steroidal Allergy Severe HIVES AND Verified 01/01/23 08:19 Anti-Inflamma ITCHING aspirin Allergy Unknown Hives Verified 01/01/23 08:19 BILL Inhibitors AdvReac Mild Cough Verified 01/01/23 08:19 hydrocodone AdvReac Unknown Elevated Verified 01/01/23 08:19 Heart Rate Review of Systems Review of Systems: All systems reviewed & are unremarkable except as noted in HPI and below Constitutional: Constitutional: Reports chills, Denies fatigue and Denies fever(s) ENT: Denies nasal congestion, Reports neck pain and Denies sore throat Cardiovascular: Cardiovascular: Denies chest pain and Denies radiating jaw, neck or arm pain Respiratory: Respiratory: Denies cough, Denies dyspnea and Denies wheezing Gastrointestinal: Gastrointestinal: Reports abdominal pain (suprapubic), Denies diarrhea, Denies nausea and Denies vomiting Genitourinary: Genitourinary: Denies dysuria, Denies flank pain and Denies urinary frequency Neurologic: Denies headache(s), Denies focal weakness and Reports numbness (post surgical in hands.) [facility] Past Medical History Medical History (Updated 01/01/23 @ 16:06 by Lawson Ward MD) Chronic neck pain 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 Diabetes mellitus Fusion of joint Hyperlipidemia Hypertension Knee pain, chronic Left anterior knee pain Surgical History Surgical History (Updated 01/01/23 @ 14:46 by Kelli Moura MD) History of appendectomy History of back surgery History of knee surgery History of vasectomy Hx of arthroscopic knee surgery Family History Family History Father Myocardial infarction Mother Breast cancer Social History Social History Years smoked: 20 Smoking status: Former smoker Tobacco type: cigarettes Second hand tobacco smoke exposure: No Alcohol intake: never Substance use: never Substance use type: does not use Living arrangements: with family Occupation/Education: occupation Gender identity (if verbalized by the patient): Male Spiritual care concerns: No Agree to blood products: Yes Exam Narrative: GENERAL: Uncomfortable-appearing, well-nourished, and in no acute distress. HEAD: Normocephalic, atraumatic. EYES: PERRL and EOMI. ENT: Mucous membranes moist. NECK: Supple. Well-healed midline scar of the C-spine with only slight redness which may just be postsurgical in nature. No dehiscence of the wound. CHEST: Clear to auscultation. No respiratory distress. HEART: Regular rate and rhythm. Normal peripheral pulses. ABDOMEN: Soft, nontender, nondistended. EXTREMITIES: Normal range of motion.
[2023-01-01 12:14] LABS: Reflex Lactic Acid Yes or No Add Lactic
[2023-01-01 12:51] LABS: Lactic Acid 1.6 mmol/L (0.7-2.0)
[2023-01-01] MEDS: HYDROmorphone HCL INJ (*CRX) 1 MG/ML SYR 0.5 MG IV PUSH ×2 (13:02→18:36)
--- NOTE | 2023-01-01 14:37 | WPDNEUROSGCN ---
Assessment and Plan Assessment and plan (1) Status post cervical spinal fusion: Code(s): Z98.1 - Arthrodesis status Status: Acute Plan HPI: Alverto Quintero is a 67 year old male with history of recent C5-T1 posterior cervical laminectomy and C5-T2 posterior cervical fusion performed at [facility] on December [address] Narayan for a cervical myeloradiculopathy. He apparently had significant pain issues after surgery requiring a short ICU stay and [facility]. He ultimately discharged home on December 09 and states he was doing relatively well until about 2 days ago when he started developing intermittent periods severe chills followed by extreme sweating. He has also had some worsening pain in the back of his neck radiating into the shoulders. He denies any radicular pain or paresthesias into the arms or legs. He denies any weakness in his extremities or bowel or bladder changes. He denies any fevers at home or incisional drainage. He was scheduled to see Dr. Narayan in clinic today, but his symptoms were significant enough that he decided to proceed to the ER instead. Workup in the ER was concerning for possible surgical site infection, hence the neurosurgery consult today. A/P: Mr. Quintero is a 67-year-old male who underwent a C5-T2 posterior cervical decompression and fusion by Dr. Narayan at [facility] on December 05 who presents with 2 days of significant sweating and chills as well as some increased neck pain. His incision appears to be healing well without any obvious drainage. He does not have any documented fevers, and his white count is normal. His lactate is slightly elevated at 2.3, and his CRP is slightly elevated at [address] he has a CT cervical spine without/with contrast which shows a small fluid collection superficial to the muscle without obvious abnormal enhancement. At this time, I am not convinced that he has a surgical site infection as his elevated lactate and CRP could be related to his recent surgery, and as it is not unusual to have a small fluid collection at the surgical site postoperatively, although his symptoms are certainly concerning. I did discuss his case with Dr. Narayan as well as with Dr. Ward in the ER. Dr. Narayan and I agree That he would be best served in a facility where an infectious disease doctor is available to see him. An MRI cervical spine without and with contrast would also better evaluate the surgical site. We therefore asked Dr. Ward to help arrange transfer to [facility] in [place] for further workup and evaluation. I discussed this plan with the patient and his who were in agreement. 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 Diabetes mellitus Fusion of joint Hyperlipidemia Hypertension Knee pain, chronic Left anterior knee pain Surgical History Surgical History (Updated 01/01/23 @ 14:46 by Kelli Moura MD) History of appendectomy History of back surgery History of knee surgery History of vasectomy Hx of arthroscopic knee surgery Family History Family History Father Myocardial infarction Mother Breast cancer Social History Social History Years smoked: 20 Smoking status: Former smoker Tobacco type: cigarettes Second hand tobacco smoke exposure: No Alcohol intake: never Substance use: never Substance use type: does not use Living arrangements: with family Occupation/Education: occupation Gender identity (if verbalized by the patient): Male Spiritual care concerns: No Agree to blood products: Yes Meds Home Medications and Allergies Home Medications Medication Instructions
[2023-01-01] MEDS: ACETAMINOPHEN 500 MG TABLET 1000 MG PO (16:44)
== END 2023-01-01 19:37 | disposition short-term general hospital (02) ==
PROVIDERS: Emergency Provider Emergency Medicine; PCP Internal Medicine
DX: M46.52 Other infective spondylopathies, cervical region (principal); Z20.822 Contact with and (suspected) exposure to COVID-19; E11.9 Type 2 diabetes mellitus without complications; E78.5 Hyperlipidemia, unspecified; Z98.1 Arthrodesis status; Z87.891 Personal history of nicotine dependence; Z79.84 Long term (current) use of oral hypoglycemic drugs; M47.812 Spondylosis without myelopathy or radiculopathy, cervical region
CPT/HCPCS: 36415; 71046; 72125; 72126; 72127; 80053; 81001; 83605; 85025; 85652; 86140; 87040; 87636; 96361; 96374; 96375; 96376; 99285; A9270; J1170; J2270; J2405; J7030; Q9967

== ENCOUNTER → 2023-03-17 12:42 | Outpatient (CLI) | payer MEDICARE, SELFPAY ==
--- NOTE | ~2023-03-17 | XR_ITS ---
EXAMINATION:XR_CERV2-3V_CR DATE: 03/17/2023 12:54 INDICATION: Neck pain TECHNIQUE: AP, lateral, and there are laminectomies from C5 through C7. Lateral swimmers views of the cervical spine are provided. COMPARISON: 11/18/2022; CT, 01/01/2023 FINDINGS: Bone alignment is normal. There are changes of anterior fusion from C4 through C7 and poste rior fusion from C5 through T2. The odontoid process is intact. No fracture is identified. The verteb ral body heights are normal. There is severe facet joint osteoarthritis at C2-3 and C3-4. Prevertebra l soft tissues are normal. IMPRESSION: 1. Postsurgical changes and moderate cervical spondylosis without acute findings or significant inter anna change. Reviewed, dictated and finalized at location B. IMPRESSION: 1. Postsurgical changes and moderate cervical spondylosis without acute finding s or significant interval change.
== END ==
PROVIDERS: PCP Internal Medicine; Visit Provider Neurological Surgery
DX: M47.812 Spondylosis without myelopathy or radiculopathy, cervical region (principal)
CPT/HCPCS: 72040

== ENCOUNTER → 2023-06-18 12:56 | Outpatient (CLI) | payer MEDICARE, SELFPAY ==
--- NOTE | ~2023-06-18 | XR_ITS ---
XR_CERV2-3V_CR 06/18/2023 13:06 Indication: Status post cervical spinal fusion Procedure: 4 views cervical spine Comparison: 03/17/2023 Findings: There are surgical changes of the cervical spine with anterior fusion at C4-7 and posterior fusion at C5-T2. Hardware intact. Odontoid process within normal limits. There is moderate multileve l facet hypertrophy at C2-3 and C3-4. On apices are normal. No prevertebral soft tissue abnormality. Impression: 1: Stable appearance to cervical spine. No significant interval change. Reviewed, dictated and finalized at location B. Impression: 1: Stable appearance to cervical spine. No significant interval change.
== END ==
PROVIDERS: PCP Neurological Surgery; Visit Provider Neurological Surgery
DX: Z98.1 Arthrodesis status (principal)
CPT/HCPCS: 72040

== ENCOUNTER 2023-10-09 09:49 | Outpatient (CLI) | payer MEDICARE, SELFPAY ==
--- NOTE | ~2023-10-09 | XR_ITS ---
Supine and upright views of the abdomen Clinical history: Kidney stone COMPARISON: 07/31/2022 Findings: Bowel gas pattern is nonspecific. No evidence for obstruction or free air. 9 mm right lower pole renal stone noted. 5 mm stone present probably in the left renal pelvis, possibly proximal left ureter.. Osseous structures are intact. Impression: Right nephrolithiasis. 5 mm left-sided stone, possibly at the left renal pelvis or proximal ureter. Reviewed, dictated and finalized at location . RACT PARALEGAL Impression: Right nephrolithiasis. 5 mm left-sided stone, possibly at the left renal pelvis or proximal ureter.
== END 2023-10-09 09:50 | disposition home or self-care (01) ==
LOC: ANHIMG 09:49
PROVIDERS: PCP Neurological Surgery; Visit Provider Urology
DX: N20.0 Calculus of kidney (principal)
CPT/HCPCS: 74018

== ENCOUNTER 2023-12-01 13:23 | Outpatient (CLI) | payer MEDICARE, SELFPAY ==
--- NOTE | ~2023-12-01 | XR_ITS ---
EXAMINATION: XR fl inj shoulder RT - MR/CT DATE: 12/01/2023 14:31 INDICATION: Superior glenoid labrum lesion at the right shoulder post fall 4 weeks prior. TECHNIQUE: A time-out was performed to verify the patient's name, date of , and procedure to b e performed. The procedure including the risks, benefits, and alternatives was discussed with the pat ient. Risks discussed included bleeding and infection. The patient understood the risks and agreed to proceed. The skin overlying the rotator cuff interval of the right glenohumeral joint was prepped a nd draped in usual sterile fashion. Anesthetic was administered with 1% lidocaine subcutaneously. A 22 G needle was advanced under fluoroscopic guidance into the joint. Injection of 1 mL of Omnipaque 240 confirmed intra-articular position of the needle. Subsequently, injectate consisting of 12 mL o f 2:1:1 mixture of sterile saline:Omnipaque 240:1% lidocaine mixed 200:1 with 529 mg/mL Multihance ga dolinium contrast was injected with intra-articular administration confirmed with intermittent fluor oscopy. The needle was removed and the entry site was cleaned and dressed. There were no immediate c omplications. Fluoroscopy exposure time was 0.3 minutes. The total number of images was 88. FINDINGS: Real-time fluoroscopy demonstrates the needle and contrast in the right glenohumeral joint. IMPRESSION: 1. Successful right glenohumeral joint injection of dilute gadolinium contrast mixture for subsequent MRI arthrogram which will be dictated separately. Reviewed, dictated and finalized at location A.
--- NOTE | ~2023-12-01 | MR_ITS ---
EXAMINATION: MR shoulder RT w con DATE: 12/01/2023 15:26 INDICATION: Superior glenoid labrum lesion of the right shoulder with right shoulder pain post fall 4 weeks prior. TECHNIQUE: Magnetic resonance imaging (MRI) arthrogram of the right shoulder was performed following intra-articular gadolinium contrast injection and without intravenous contrast. Details of the gleno humeral joint injection have been dictated separately. Sequences included axial T2-weighted FS FSE, axial T1-weighted FS FSE, coronal oblique T1-weighted FS FSE, coronal oblique T2-weighted FSE, sagitt al T2-weighted FS FSE, sagittal T1-weighted FSE, and ABER (abduction external rotation) T1-weighted F S FSE. COMPARISON: None. FINDINGS: Coracoacromial arch: The acromion undersurface is curved in morphology (type II). The coracoacromial ligament is normal. M oderate acromioclavicular osteoarthritis with degenerative subarticular cystic change at the lateral head of the clavicle. Rotator cuff: Severe tendinopathy of the distal supraspinatus, mild tendinopathy of the infraspinatus and moderate tendinopathy in the intervening conjoined portion of the tendons without discrete tear. The teres min or tendon is normal. There is a tear involving the all but the medialmost rim of the cephalad two thi rds of the lesser tuberosity. The bursal side of the tendon remains intact and contiguous with the tr ansverse humeral ligament. The caudal-most muscular attachment of the subscapularis remains intact. T here is mild fatty atrophy of the cephalad subscapularis tendon. Biceps tendon, glenoid labrum and glenohumeral cartilage: Stable tenosynovitis with increased fluid in the long head biceps tendon sheath. The long head of the biceps tendon is medially subluxed from the intertubercular groove and extends into the subscapulari s tendon defect at its lesser tuberosity insertion. There is moderate tendinopathy and longitudinal s plit tearing of the tendon. There is an intrasubstance ganglion cyst within the long head biceps tend on extending 3.6 cm caudally from the inferior margin of the intertubercular groove and measuring up to 1.2 x 1.0 cm in maximal orthogonal dimensions. Amorphous increased intrasubstance fluid signal at the posterosuperior glenoid labrum extending from the 11:00 position to the 9:00 position consistent with tear, potentially degenerative. There is additional mild likely degeneration along the inferior to anteroinferior labrum with tiny marginal osteophytes along the inferior rim of the glenoid. There is mild partial-thickness cartilage loss along the cephalad third of the glenoid and along the infero medial aspect of the humeral head. Bones and other: Bone alignment is normal. No fracture or pathologic marrow replacing process. Small glenohumeral join t effusion with mild synovitis at the axillary recess. No loose osteochondral bodies identified. Smal l amount of fluid without evident contrast enhancement in the subacromial/subdeltoid bursa consistent with mild bursitis. IMPRESSION: 1. Moderate subscapularis tendinopathy with tear involving all but the medialmost rim of the cephalad two thirds of the lesser tuberosity resulting in medial subluxation of the long head biceps tendon a cross the medial rim of the intertubercular groove. 2. Moderate tendinopathy of the long head biceps tendon with longitudinal split tearing and prominent intrasubstance ganglion cyst at the extra-articular portion of the tendon. 3. Severe tendinopathy of the supraspinatus decreasing to mild tendinopathy of the more posterior dis placement indents tendon without discrete tear. 4. Mild glenohumeral osteoarthritis with tears at the posterior superior and inferior to anteroinferi or labrum which could be chronic degenerative tears. 5. Moderate acromioclavicular osteoarthritis with mild underlying subacromial/subdeltoid bursitis.
== END 2023-12-01 13:24 | disposition home or self-care (01) ==
LOC: ANHIMG 13:30
PROVIDERS: PCP Neurological Surgery; Visit Provider Internal Medicine
DX: S43.431A Superior glenoid labrum lesion of right shoulder, initial encounter (principal); X58.XXXA Exposure to other specified factors, initial encounter; M19.011 Primary osteoarthritis, right shoulder
CPT/HCPCS: 23350; 73222; 77002; A9577; Q9966

== ENCOUNTER 2024-01-06 12:53 | Outpatient (CLI) | payer MEDICARE, SELFPAY ==
--- NOTE | ~2024-01-06 | XR_ITS ---
EXAMINATION: [id number] DATE: 01/06/2024 13:10 INDICATION: Cervical spinal fusion. TECHNIQUE: 3 views of cervical spine on 4 radiographs were obtained. COMPARISON: Cervical spine radiographs 06/18/2023 FINDINGS: There are changes of anterior fusion procedure from C4 to C7 with interbody bone graft and anterior plate and screws. There are changes of posterior fusion procedure from C5 to T2 with lateral mass screws in C5 and C6 and pedicle screws in T1 and T2. Vertebral body heights are normal. Interve rtebral disc heights are normal. There is multilevel facet joint osteoarthritis, severe on the right at C3-C4. There is mild central canal stenosis at C3-C4. No prevertebral soft tissue swelling. IMPRESSION: 1. Anterior fusion procedure from C4 to C7 and posterior fusion procedure from C5 to T2. 2. Mild cervical spondylosis. Reviewed, dictated and finalized at location A.
== END 2024-01-06 12:54 ==
PROVIDERS: PCP Internal Medicine; Visit Provider Neurological Surgery
DX: M47.892 Other spondylosis, cervical region (principal); Z98.1 Arthrodesis status
CPT/HCPCS: 72040

== ENCOUNTER 2024-11-22 10:08 | Outpatient (CLI) | payer MEDICARE, SELFPAY ==
--- NOTE | ~2024-11-22 | XR_ITS ---
XR abdomen/kub 1V Ordering provider: Jeb Samuel MD History: . Kidney stone on right side . Comparison: October 09, 2023 FINDINGS: BOWEL: Nonobstructive bowel gas pattern. ORGANOMEGALY: None. SIGNIFICANT PATHOLOGIC CALCIFICATIONS: Left kidney stone measuring 8 mm. Right kidney stone also note d measuring 8 mm. OTHER: No free air is seen under the diaphragm. Degenerative changes of the spine. Bilateral hip osteoarthritic changes. IMPRESSION: NO ACUTE ABDOMINAL FINDINGS. Bilateral kidney stones. Reviewed, dictated and finalized at location A.
== END 2024-11-22 10:09 | disposition home or self-care (01) ==
LOC: GOSHIMG 10:10
PROVIDERS: PCP Urology; Visit Provider Urology
DX: N20.0 Calculus of kidney (principal)
CPT/HCPCS: 74018

== ENCOUNTER 2025-03-04 08:47 | Emergency (ER) | payer MEDICARE, SELFPAY ==
[2025-03-04 08:58] VITALS: BP 150/75; PULSE 79; RESP 16; TEMP 36.5; O2SAT 98
--- NOTE | 2025-03-04 09:07 | ED.SKABFB ---
HPI - Skin/Abscess/Foreign Bdy General Chief complaint: Skin/Abscess/Foreign Body Stated complaint: Skin Irritation Time Seen by Provider: 03/04/25 09:23 Source: patient and RN notes reviewed Mode of arrival: ambulatory Limitations: no limitations History of Present Illness HPI narrative: 69 year old male presents with concern for a red spot on his back. Reports he noticed the area at the end of January. He said the area is tender and itchy. He reports the pain has gotten worse and is causing pain in the muscles around the area. He denies fever, aches, chills, sweats. Denies drainage from the area. He denies any other area of rash or pain MD complaint: other (redness) Related Data Home Medications ?Medication ?Instructions ?Recorded ?Confirmed ?Last Taken ?Type baclofen 10 mg tablet 10 mg PO DAILY PRN 12/16/23 03/16/24 Unknown History cetirizine 10 mg capsule (Zyrtec) 10 mg PO DAILY PRN 12/16/23 03/16/24 Unknown History diclofenac sodium 75 mg 75 mg PO BID 12/16/23 03/16/24 Unknown History tablet,delayed release escitalopram oxalate 10 mg tablet 10 mg PO DAILY 12/16/23 03/16/24 Unknown History finasteride 5 mg tablet 5 mg PO DAILY 12/16/23 03/16/24 Unknown History montelukast 10 mg tablet 10 mg PO DAILY 12/16/23 03/16/24 Unknown History multivitamin with minerals-folic 1 tablet PO DAILY 12/16/23 03/16/24 Unknown History acid 80 mcg chewable tablet (Centrum Adult 50 Plus) rosuvastatin 5 mg tablet 5 mg PO DAILY 12/16/23 03/16/24 Unknown History semaglutide 0.25 mg or 0.5 mg (2 0.5 mg subcut WEEKLY 01/13/24 03/16/24 Unknown History mg/3 mL) subcutaneous pen injector ([facility]) Allergies Allergy/AdvReac Type Severity Reaction Status Date / Time naproxen Allergy Severe hives and Verified 03/04/25 09:12 itching NSAIDS (Non-Steroidal Allergy Severe HIVES AND Verified 03/04/25 09:12 Anti-Inflamma ITCHING aspirin Allergy Unknown Hives Verified 03/04/25 09:12 BILL Inhibitors AdvReac Mild Cough Verified 03/04/25 09:12 hydrocodone AdvReac Unknown Elevated Verified 03/04/25 09:12 Heart Rate Review of Systems Review of Systems: CONSTITUTIONAL: Denies malaise, chills, sweats, or fever. EYES: Denies redness, or discharge. ENT: Denies rhinorrhea, congestion, swollen lips, swollen tongue CARDIOVASCULAR: Denies chest pain, palpitations, or edema. RESPIRATORY: Denies cough or dyspnea. GASTROINTESTINAL: Denies abdominal pain, nausea, vomiting SKIN: Reports it painful, itchy spot on his back MUSCULOSKELETAL: Denies joint pain or myalgia. NEUROLOGIC: Denies headache. 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 Diabetes mellitus Fusion of joint Hyperlipidemia Knee pain, chronic Left anterior knee pain Surgical History Surgical History History of appendectomy History of back surgery History of fusion of cervical spine anterior fusion c 5-6, and posterior surgery History of knee surgery History of vasectomy Hx of arthroscopic knee surgery Family History Family History Father Myocardial infarction Mother Breast cancer Social History Social History Years smoked: 20 Smoking status: Former smoker Tobacco type: cigarettes Second hand tobacco smoke exposure: No Alcohol intake: never Substance use: never Substance use type: does not use Do You Feel Safe in your Home?: Yes Lack of Transportation: No Lack of Food: Never True Current Housing: I Have Housing Concerned About Future Housing: No Difficulty Paying Gas/Electric Bills: No Difficulty Paying for Meds: YES Currently Unemployed: No Education: Associate Degree Difficulty w/ Childcare or Family Care: No Living arrangements: with family Occupation/Education: occupation Gender identity (if verbalized by the patient): Male Spiritual care concerns: No Agree to blood products: Yes Comments At time of signature, agree with nursing past medical, surgical, social and family history. There is no relevant family history pertinent to the presenting complaint Exam Narrative: GENERAL: Well-appearing, well-nourished, and in no acute distress. HEAD: Normocephalic, atraumatic. EYES: PERRLA, conjunctivae clear, and EOMI. ENT: Mucous membranes moist. Oropharynx without edema, erythema or lesions. NECK: Supple. No lymphadenopathy CHEST: Clear to auscultation. No respiratory distress. HEART: Regular rate and rhythm. SKIN: Warm, dry. Approximately 2 cm raised indurated area of erythema, with central scab surrounded by another 2 cm areas of erythema without induration. No drainage noted. Erythema in the shape of a bandage noted around the area. NEURO: Alert and oriented x3. PSYCH: Normal mood and affect Course Course Emergency Course: Patient is aware of diagnosis, understands and agrees to treatment plan. Anticipatory guidance given. Patient agrees to follow-up as directed and is aware of reasons to seek care at the emergency department. Portions of this record may have been created with voice recognition software Level of Care: Express Care Visit Vital Signs Vital signs: Vital Signs Temperature 97.7 F 03/04/25 08:58 Pulse Rate 79 03/04/25 08:58 Respiratory Rate 16 03/04/25 08:58 Blood Pressure 150/75 H 03/04/25 08:58 Pulse Oximetry 98 03/04/25 08:58 Temperature 97.7 F 03/04/25 08:58 Pulse Rate 79 03/04/25 08:58 Respiratory Rate 16 03/04/25 08:58 Blood Pressure 150/75 H 03/04/25 08:58 Pulse Oximetry 98 03/04/25 08:58 Reviewed. MDM - Skin/Abscess/Foreign Bdy MDM Narrative Medical decision making narrative: Does not appear at this time to be erythema multiforme, bullous, SJS, TEN; no evidence at this time to suggest RMSF, endocarditis or Lyme disease; patient looks well, nontoxic and is tolerating oral intake; no neurologic signs or symptoms; no headache, photophobia or neck pain; afebrile; appropriate for initial outpatient treatment; discussed the importance of follow-up, patient agrees; question, viral exanthema, contact dermatitis, allergic dermatitis, eczema, urticaria, cellulitis, insect bite, impetigo. No soft palate or uvula edema, no tongue, lip edema or other mucosal involvement, no respiratory compromise, no stridor, no wheezing, no wheezing, no history of syncope, no hypotension, no nausea, vomiting, or diarrhea. Instructed patient to go to nearest ER immediately for any worsening symptoms including but not limited to: fever, spreading rash, pain, sore throat, headache, dizziness, chest pain, trouble breathing, or any symptoms concerning to the patient. Critical Care Time Critical Care Time Critical Care Time: No Discharge Plan Discharge Clinical Impression: Bacterial infection of skin Patient Disposition: Home Condition: Stable Instructions: Antibiotic Form, Warm Compress or Soak (ED) Additional Instructions: Please follow up with your Primary Care Doctor within 48-72 hours - call for an appointment. Apply moist heat 3-4 times daily for 10-15 minutes. Take Motrin 600mg every 8 hours with food for pain. Please take Antibiotics and use ointment as directed. If you experience any worsening redness, swelling, streaking (red lines), fever or chills please go to the ER Patient Language: Citizen Of [place] Prescriptions: New doxycycline monohydrate 100 mg tablet 100 mg PO BID 7 Days Qty: 14 0RF mupirocin 2 % ointment 1 applic topical BID 7 Days Qty: 22 0RF No Action finasteride 5 mg tablet 5 mg PO DAILY rosuvastatin 5 mg tablet 5 mg PO DAILY montelukast 10 mg tablet 10 mg PO DAILY escitalopram oxalate 10 mg tablet 10 mg PO DAILY Zyrtec 10 mg capsule 10 mg PO DAILY PRN Centrum Adult 50 Plus 80 mcg tablet,chewable 1 tablet PO DAILY baclofen 10 mg tablet 10 mg PO DAILY PRN diclofenac sodium 75 mg tablet,delayed release (DR/EC) 75 mg PO BID Ozempic 0.25 mg or 0.5 mg (2 mg/3 mL) pen injector 0.5 mg subcut WEEKLY Rx Instructions: for 4 weeks losartan 25 mg tablet 25 mg PO DAILY Qty: 90 0RF Follow-up/Referrals: Tano,Arun Espinoza MD [Primary Care Provider] - Time of Disposition: 09:33
== END 2025-03-04 09:45 | disposition home or self-care (01) ==
PROVIDERS: Emergency Provider Nurse Practitioner; PCP Internal Medicine
DX: L08.9 Local infection of the skin and subcutaneous tissue, unspecified (principal); B96.89 Other specified bacterial agents as the cause of diseases classified elsewhere; E11.9 Type 2 diabetes mellitus without complications; E78.5 Hyperlipidemia, unspecified; Z87.891 Personal history of nicotine dependence
CPT/HCPCS: 99213; G0463